=== PATIENT | male | born 1985 | race Hispanic/Latino ===

== ENCOUNTER 2018-12-20 12:03 | Emergency (ER) | payer OTHER ==
[2018-12-20 12:33] LABS: BASOPHILS % (AUTO) 1.2 % (0.0-5.0); EOSINOPHILS % (AUTO) 4.1 % (0.0-8.0); HEMATOCRIT 48.7 % (42-54); LYMPHOCYTES % (AUTO) 32.7 % (21.0-51.0); MEAN CORPUSCULAR HEMOGLOBIN 30.6 pg (27.0-33.0); MEAN CORPUSCULAR HGB CONC 34.3 g/dL (32.0-36.0); MEAN CORPUSCULAR VOLUME 89.3 fL (79-99); MONOCYTES % (AUTO) 4.1 % (3.0-13.0); NEUTROPHILS % (AUTO) 57.9 % (40.0-77.0); PLATELET COUNT (AUTO) 270 K/uL (130-400); RED BLOOD CELL COUNT(AUTO) 5.46 MIL/uL (4.50-6.20); RED CELL DISTRIBUTION WIDTH 13.1 % (11.0-15.5); WHITE BLOOD COUNT (AUTO) 7.7 K/uL (4.8-10.8)
[2018-12-20 12:46] LABS: CREATININE 1.1 mg/dL (0.5-1.5); POTASSIUM 4.4 mmol/L (3.5-5.1)
[2018-12-20 12:50] LABS: BILIRUBIN,TOTAL 0.4 mg/dL (0.2-1.0); TOTAL PROTEIN, SERUM 7.8 g/dL (6.0-8.3)
== END 2018-12-20 15:15 | disposition home or self-care (01) ==
LOC: EDH 12:03
DX: R07.89 Other chest pain (principal); R05 Cough; Z72.0 Tobacco use
CPT/HCPCS: 36415; 71045; 80053; 84484; 85025; 93005

== ENCOUNTER 2021-08-10 09:58 | Emergency (ER) | payer BC ==
[~2021-08-10] VITALS: Ht 165.1 cm; Wt 108.9 kg
[2021-08-10] MEDS ORDERED: ASPIRIN 81MG CHEW TAB PO ONE (10:00)
[2021-08-10 10:13] LABS: BASOPHILS % (AUTO) 0.6 % (0.0-5.0); EOSINOPHILS % (AUTO) 3.6 % (0.0-8.0); HEMATOCRIT 46.4 % (42-54); LYMPHOCYTES % (AUTO) 25.2 % (21.0-51.0); MEAN CORPUSCULAR HEMOGLOBIN 29.5 pg (27.0-33.0); MEAN CORPUSCULAR HGB CONC 33.4 g/dL (32.0-36.0); MEAN CORPUSCULAR VOLUME 88.2 fL (79-99); MONOCYTES % (AUTO) 7.1 % (3.0-13.0); NEUTROPHILS % (AUTO) 63.1 % (40.0-77.0); PLATELET COUNT (AUTO) 258 K/uL (130-400); RED BLOOD CELL COUNT(AUTO) 5.26 MIL/uL (4.50-6.20); RED CELL DISTRIBUTION WIDTH 12.4 % (11.0-15.5); WHITE BLOOD COUNT (AUTO) 8.4 K/uL (4.8-10.8)
[2021-08-10 10:22] LABS: POTASSIUM 3.7 mmol/L (3.5-5.1)
[2021-08-10 10:27] LABS: ALBUMIN 4.3 g/dL (3.5-5.0); BILIRUBIN,TOTAL 0.5 mg/dL (0.2-1.0); TOTAL PROTEIN, SERUM 7.5 g/dL (6.0-8.3)
[2021-08-10] MEDS ORDERED: LIDOCAINE HCL 2% VISCOUS 15 ML UDCUP ONE (10:33)
[2021-08-10] MEDS ORDERED: MAG/ALUM/SIMETH 30 ML UDCUP ONE (10:33)
[2021-08-10] MEDS ORDERED: DICYCLOMINE HCL 10 MG/5 ML ML PO ONE (10:34)
[2021-08-10] MEDS ORDERED: BUSP15 PO (10:47)
[2021-08-10] MEDS ORDERED: FAMO20TA8 PO (10:47)
[2021-08-10] MEDS ORDERED: MAG/ALUM/SIMETH 30 ML UDCUP PO ONE (11:00)
[2021-08-10] MEDS ORDERED: LIDOCAINE HCL 2% VISCOUS 15 ML UDCUP PO ONE (11:00)
[2021-08-10] MEDS ORDERED: DICYCLOMINE HCL 10 MG/5 ML ML PO SCH (11:00)
[2021-08-10 11:07] VITALS: BP 133/78
== END 2021-08-10 11:14 | disposition home or self-care (01) ==
LOC: EDH 09:58
DX: K21.9 Gastro-esophageal reflux disease without esophagitis (principal); F41.9 Anxiety disorder, unspecified; I10 Essential (primary) hypertension
CPT/HCPCS: 36415; 80053; 84484; 85025; 93005